=== PATIENT | female | born 1990 | race Asian ===

== ENCOUNTER 2022-10-01 15:26 | Outpatient (CLI) | payer OTHER ==
[2022-10-01 16:23] LABS: THYROID STIMULATING HORMONE 0.89 uIU/mL (0.34-5.60)
[2022-10-01 16:27] LABS: FREE T4 (FREE THYROXINE) 0.99 ng/dL (0.58-1.64)
== END 2022-10-01 15:27 | disposition home or self-care (01) ==
LOC: LAB 15:26
PROVIDERS: ATTEND Nurse Practitioner Obstetrics & Gynecology
DX: Z31.41 Encounter for fertility testing (principal); N91.1 Secondary amenorrhea
CPT/HCPCS: 36415; 84144; 84439; 84443; 84702